=== PATIENT | male | born 1955 | race Caucasian/White ===

== ENCOUNTER 2019-01-26 13:00 | Inpatient (IN) | payer OTHER, BC ==
[~2019-01-26] VITALS: Ht 185.4 cm; Wt 147.4 kg
[~2019-01-26 13:00] MED LIST: ASPI81EC97 PO; COZ50 PO; FLAX10007 PO; GLUC500T3 PO; METF100028 PO; SIMV80TA1 PO; [UNRECOGNIZED DRUG - CODE] PO
[2019-01-26 13:08] VITALS: BP 144/72
--- NOTE | 2019-01-26 13:25 | NUR ---
DR REBOLLEDO AT BEDSIDE EVALUATING PT.
[2019-01-26] MEDS ORDERED: NACL 0.9% 500 ML IV SCH (13:33)
--- NOTE | 2019-01-26 13:50 | NUR ---
XRAY AT BEDSIDE.
--- NOTE | 2019-01-26 14:02 | NUR ---
BIBA W/ C/O GENERALIZED WEAKNESS X1 DAY. PT REPORTS LEAVING [facility] TODAY AND UPON RETURNING HOME WAS UNABLE TO WALK INTO HIS HOUSE DUE TO BLE WEAKNESS SO HIS CALLED 911. FSBS WAS CHECKED: 209, PT IS ALERT & ORIENTED, ANSWERING QUESTIONS APPROPRIATELY. +2 PITTING EDEMA TO BLE. DENIES N/V/D/PAIN, SKIN IS PINK/WARM/DRY PT DENIES ANY FEVER, CP, SOB, OR COUGH AT THIS TIME. HOB ELEVATED, BEDRAILS UP X1.
[2019-01-26 14:04] LABS: BASOPHILS # (AUTO) 0.1 K/uL (0.00-0.22); BASOPHILS % (AUTO) 0.6 % (0.0-2.0); EOSINOPHILS # (AUTO) 0.1 K/uL (0-0.4); EOSINOPHILS % (AUTO) 1.2 % (0.0-4.0); HEMATOCRIT 54.6 % (36-52); HEMOGLOBIN 18.4 g/dL (12.0-18.0); LYMPHOCYTES # (AUTO) 0.6 K/uL (2.0-11.5); LYMPHOCYTES % (AUTO) 6.9 % (20.5-51.1); MEAN CORPUSCULAR HEMOGLOBIN 30 pg (27-31); MEAN CORPUSCULAR HGB CONC 34 g/dL (33-37); MEAN CORPUSCULAR VOLUME 87.6 fL (80-94); MONOCYTES # (AUTO) 0.8 K/uL (0.8-1.0); MONOCYTES % (AUTO) 9.2 % (1.7-9.3); NEUTROPHILS # (AUTO) 6.7 K/uL (1.8-7.7); NEUTROPHILS % (AUTO) 82.1 % (42.2-75.2); PLATELET COUNT (AUTO) 352 K/uL (140-450); RED BLOOD CELL COUNT(AUTO) 6.24 MIL/uL (4.20-6.10); RED CELL DISTRIBUTION WIDTH 13.7 % (11.6-13.7); WHITE BLOOD COUNT (AUTO) 8.2 K/uL (4.8-10.8)
[2019-01-26 14:10] LABS: ANION GAP 13.4 (8-16); CARBON DIOXIDE 25.6 mmol/L (21-32); CREATININE 0.9 mg/dL (0.7-1.3)
--- NOTE | 2019-01-26 14:14 | NUR ---
mother in law ELIN [phone]
[2019-01-26 14:23] LABS: ALBUMIN 3.3 g/dL (3.4-5.0); TOTAL BILIRUBIN 1.2 mg/dL (0.0-1.0)
--- NOTE | 2019-01-26 14:23 | NUR ---
PT UNABLE TO PROVIDE URINE AT THIS TIME.
--- NOTE | 2019-01-26 14:40 | NUR ---
PT STATES HE IS STILL UNABLE TO PROVIDE A URINE SAMPLE
[2019-01-26] MEDS ORDERED: LINA5TAB PO (14:52)
[2019-01-26] MEDS ORDERED: INSU100S22 SUBQ (14:52)
[2019-01-26] MEDS ORDERED: ATOR10TA PO (14:52)
[2019-01-26] MEDS ORDERED: DAPA10TA PO (14:52)
[2019-01-26] MEDS ORDERED: CARV6.25 PO (14:52)
--- NOTE | 2019-01-26 15:05 | NUR ---
URINE COLLECTED AND SENT TO LAB
[2019-01-26 15:12] LABS: APPEARANCE,URINE CLEAR (CLEAR); BILIRUBIN,URINE NEGATIVE (NEGATIVE); BLOOD, URINE NEGATIVE (NEGATIVE); COLOR,URINE YELLOW (YELLOW); LEUKOCYTE ESTERASE ,URINE NEGATIVE (NEGATIVE); NITRITE, URINE NEGATIVE (NEGATIVE); PH,URINE 5.5 (5.0-9.0); UGLUCOSE 3+ (NEGATIVE)
--- NOTE | 2019-01-26 15:12 | NUR ---
PT ASLEEP IN BED, NO NEW NEEDS AT THIS TIME
[2019-01-26 15:22] LABS: RBC,URINE 0-5 /HPF (0-5)
--- NOTE | 2019-01-26 16:21 | NUR ---
SPOKE TO HAND PACKER/PACKAGER ARMOND. VERBAL AUTHORIZTION TO ADMIT PATIENT. CALL BACK TOMORROW FOR REFERENCE NUMBER FOR VERIFICATION.
[2019-01-26] MEDS ORDERED: ACETAMINOPHEN 325 MG TAB PO PRN (16:25)
[2019-01-26] MEDS ORDERED: ONDANSETRON 4 MG/2 ML VIAL IVP PRN (16:25)
--- NOTE | 2019-01-26 16:30 | NUR ---
PT RESTING IN BED, NO NEW NEEDS AT THIS TIME. PT MADE AWARE WE ARE PENDING ADMISSION INFORMATION AT THIS TIME.
[2019-01-26 16:50] LABS: BARBITURATE, URINE NEG. ng/ml (NEG <=200); BENZODIAZEPINE, URINE NEG. ng/mL (NEG <=200); CANNABINOID, URINE NEG. ng/mL (NEG <=50); COCAINE, URINE NEG. ng/mL (NEG <=300); OPIATE, URINE NEG. ng/mL (NEG <=2000); PHENCYCLIDINE SCREEN,URINE NEG. ng/mL (NEG <=25)
--- NOTE | 2019-01-26 17:25 | NUR ---
RECEIVED REPORT FROM ED NURSE. PT IS CALM AND ORIENTED AOX4 WITH NO COMPLAINTS AT THIS TIME. PT HAS SWELLING TO FEET NON PITTING, SKIN INTACT. BREATHING ON 2L UNLABORED LUNGS SYMMETRICAL. MRSA SWAB TAKEN. ALLERGY LABEL AND FALL RISK BAND APPLIED. SAFETY MEASURES IN PLACE AND CALL LIGHT AND PHONE WITHIN REACH. PT HAS LEFT ANTECUBITAL IV THAT IS PATENT AND ASYMPTOMATIC.
--- NOTE | 2019-01-26 17:29 | NUR ---
Patient will be admitted to care of DR. CRUZ. Admited to MED SURGE. Will go to room 108A. Belongings list completed. Report to QUINTIN ARAIZA.
[2019-01-26 17:31] LABS: FREE T4 (FREE THYROXINE) 1.32 ng/dL (0.76-1.46); MAGNESIUM 1.7 mg/dL (1.8-2.4); PHOSPHORUS 3.2 mg/dL (2.5-4.9); THYROID STIMULATING HORMONE 1.54 uIU/mL (0.34-3.74)
[2019-01-26] MEDS: NACL 0.9% 1,000 ML IV SCH (18:01)
[2019-01-26] MEDS ORDERED: MAG SULF 2000 MG/WATER PREMIX 50 ML IV SCH (18:30)
--- NOTE | 2019-01-26 19:19 | NUR ---
GAVE BEDSIDE REPORT TO NIGHT NURSE. PT IN STABLE CONDITION. DR GIORDANO AT BEDSIDE WITH PT DURING REPORT
--- NOTE | 2019-01-26 19:20 | NUR ---
RECEIVED BEDSIDE REPORT FROM DAY SHIFT RN QUINTIN. PT A/O X4. DISCUSSED PLAN OF CARE. VERBALIZED UNDERSTANDING. ABLE TO MAKE NEEDS KNOWN. NO SIGNS OF RESP DISTRESS. NC @2L. SKIN INTACT. L AC 20G INFUSING NS @10. PATENT AND INTACT. CONTINENT. PT USES URINAL. UNABLE TO AMBULATE. STANDARD PRECAUTIONS. FALL PRECAUTIONS IN PLACE. BED IN LOW POSITION. CALL LIGHT WITHIN REACH. WILL CONTINUE TO MONITOR.
--- NOTE | 2019-01-26 20:00 | NUR ---
PT MOVED TO 127 B. MEETS CRITERIA
[2019-01-26] MEDS ORDERED: C,E,1CAP2 PO (20:29)
[2019-01-26] MEDS ORDERED: HYDR-3320 PO (20:29)
[2019-01-26] MEDS ORDERED: METF1000 PO (20:29)
[2019-01-26] MEDS: DOCUSATE SODIUM 100 MG GELCAP PO SCH (20:42)
[2019-01-26] MEDS: ATORVASTATIN 20 MG TAB PO SCH (20:58)
[2019-01-26] MEDS ORDERED: metFORMIN 500 MG TAB PO SCH (21:00)
[2019-01-26] MEDS ORDERED: NON-FORMULARY ITEM (Insulin Glargine,Hum.rec.anlog (Lantus Solostar) 30 UNIT) SUBQ SCH (21:00)
[2019-01-26] MEDS ORDERED: CARVEDILOL 6.25 MG TAB PO SCH (21:00)
[2019-01-26] MEDS: INSULIN LANTUS 100 UNITS/ML 10 ML VIAL SUBQ SCH (21:07)
--- NOTE | 2019-01-26 21:10 | NUR ---
ADMINISTERED PT SCHEDULED MEDS ORDERED. EDUCATED ON SIDE EFFECTS. VERBALIZED UNDERSTANDING. TOLERATED WELL. WILL CONTINUE TO MONITOR.
--- NOTE | 2019-01-26 22:38 | NUR ---
ASSISTED PT TO REPOSITION. HELP OF ADDITIONAL 2CNAS. PERFORMED LOPEZ CARE AND CHANGED WET LINENS. TOLERATED WELL. WILL CONTINUE TO MONITOR.
--- NOTE | 2019-01-26 23:00 | NUR ---
PT REQUESTED TO REMOVE NASAL CANULA DURING THE NIGHT. NOT EXPERIENCING SHORTNESS OF BREATH. NO DISTRESS. DENIES PAIN. WILL CONTINUE TO MONITOR.
--- NOTE | 2019-01-27 00:03 | NUR ---
PT SLEEPING IN BED. EASILY AROUSABLE. NO SIGNS OF DISTRESS. WILL CONTINUE TO MONITOR.
--- NOTE | 2019-01-27 03:02 | NUR ---
PT IS SLEEPING IN BED. EASILY AROUSABLE. NO SIGNS OF RESP DISTRESS NOTED. NO SOB. DENIES PAIN. NO COMPLAINTS AT THIS TIME. PT ON OBSERVATION, STILL INFUSING NS @10 ORDERED. WILL CONTINUE TO MONITOR.
--- NOTE | 2019-01-27 04:48 | NUR ---
PT SLEEPING IN BED. EASILY AROUSABLE. NO SIGNS OF DISTRESS. NO COMPLAINTS. NO PAIN REPORTED. BED IN LOW POSITION. BED ALARM ACTIVE. CALL LIGHT WITHIN REACH. WILL CONTINUE TO MONITOR.
--- NOTE | 2019-01-27 05:07 | NUR ---
PT REQUESTED ASSISTANCE TO USE RESTROOM. NEEDS ASSISTANCE OF 2 PERSONAL.ABLE TO AMBULATE. UNSTEADY WITHOUT ASSISTANCE. TOLERATED WELL. NO SIGNS OF DISTRESS. WILL CONTINUE TO MONITOR.
--- NOTE | 2019-01-27 06:49 | NUR ---
WILL ENDORSE PT TO DAY SHIFT RN. PT IN STABLE CONDITION.AWAKE IN BED. NO SIGNS OF DISTRESS. WILL CONTINUE TO MONITOR.
[2019-01-27 06:53] LABS: BASOPHILS # (AUTO) 0.1 K/uL (0.00-0.22); BASOPHILS % (AUTO) 0.8 % (0.0-2.0); EOSINOPHILS # (AUTO) 0.1 K/uL (0-0.4); EOSINOPHILS % (AUTO) 1.6 % (0.0-4.0); HEMATOCRIT 54.2 % (36-52); HEMOGLOBIN 18.1 g/dL (12.0-18.0); LYMPHOCYTES % (AUTO) 14.4 % (20.5-51.1); MEAN CORPUSCULAR HEMOGLOBIN 30 pg (27-31); MEAN CORPUSCULAR HGB CONC 33 g/dL (33-37); MEAN CORPUSCULAR VOLUME 88.6 fL (80-94); MONOCYTES # (AUTO) 0.9 K/uL (0.8-1.0); MONOCYTES % (AUTO) 12.5 % (1.7-9.3); NEUTROPHILS # (AUTO) 5.1 K/uL (1.8-7.7); NEUTROPHILS % (AUTO) 70.7 % (42.2-75.2); PLATELET COUNT (AUTO) 321 K/uL (140-450); RED BLOOD CELL COUNT(AUTO) 6.12 MIL/uL (4.20-6.10); WHITE BLOOD COUNT (AUTO) 7.2 K/uL (4.8-10.8)
[2019-01-27 07:02] LABS: CARBON DIOXIDE 22.4 mmol/L (21-32); CREATININE 0.8 mg/dL (0.7-1.3); POTASSIUM 3.4 mmol/L (3.5-5.1)
[2019-01-27 07:11] LABS: CHOL/HDL RATIO 4.5 (1-4.5); MAGNESIUM 1.9 mg/dL (1.8-2.4); PHOSPHORUS 4.5 mg/dL (2.5-4.9)
--- NOTE | 2019-01-27 07:32 | NUR ---
RECEIVED HAND OFF REPORT FROM LINE ASSEMBLER AIRCRAFT NURSE PT IS AWAKE IN BED PT IS STABLE AND IN NO APPARENT DISTRESS. ALL SAFETY MEASURES ARE IN PLACE. WILL CONTINUE TO MONITOR.
--- NOTE | 2019-01-27 07:32 | NUR ---
PT PICKED UP TO GO TO CT SCAN. PT IS HEP LOCKED, ASSISTED PT TO WHEEL CHAIR PT IS STABLE AND IN NO APPARENT DISTRESS. ALL SAFETY MEASURES ARE IN PLACE.
--- NOTE | 2019-01-27 07:46 | NUR ---
PT BACK FROM CT SCAN. PT IS AWAKE IN BED PT IS STABLE AND IN NO APPARENT DISTRESS. ALL SAFETY MEASURES ARE IN PLACE WILL CONTINUE TO MONITOR.
[2019-01-27 08:00] VITALS: BP 154/79
--- NOTE | 2019-01-27 08:05 | NUR ---
FAXED REQUEST FOR MEDICAL RECORDS TO [facility]. CAME BACK ERROR AND DID NO SEND, I AM GOING TO CALL TO CHECK THE FAX NUMBER.
[2019-01-27] MEDS: metFORMIN 500 MG TAB PO SCH ×2 (08:32→17:33)
[2019-01-27] MEDS: DOCUSATE SODIUM 100 MG GELCAP PO SCH ×2 (08:32→21:32)
[2019-01-27] MEDS: GABAPENTIN 100 MG CAP PO SCH ×3 (08:33→17:32)
[2019-01-27] MEDS: CARVEDILOL 6.25 MG TAB PO SCH ×2 (08:33→17:33)
[2019-01-27] MEDS: INSULIN LANTUS 100 UNITS/ML 10 ML VIAL SUBQ SCH ×2 (08:51→21:39)
[2019-01-27] MEDS ORDERED: NON-FORMULARY ITEM (Linagliptin (Tradjenta) 1 TAB) PO SCH (09:00)
[2019-01-27] MEDS ORDERED: ASPIRIN 81 MG TAB.CHEW PO SCH (09:00)
[2019-01-27] MEDS ORDERED: LOSARTAN 50 MG TAB PO SCH (09:00)
[2019-01-27] MEDS ORDERED: HYDROCHLOROTHIAZIDE 25 MG TAB PO SCH (09:00)
[2019-01-27] MEDS ORDERED: MAGNESIUM OXIDE 400 MG TAB PO SCH (09:00)
[2019-01-27] MEDS ORDERED: NON-FORMULARY ITEM (Losartan/Hydrochlorothiazide (Losartan-Hctz 100-25 mg Tab) 1 TAB) PO SCH (09:00)
[2019-01-27] MEDS ORDERED: NON-FORMULARY ITEM (Dapagliflozin Propanediol (Farxiga) 10 MG) PO SCH (09:00)
[2019-01-27] MEDS ORDERED: [UNRECOGNIZED DRUG - OTHER] PO SCH (09:00)
--- NOTE | 2019-01-27 11:03 | NUR ---
CALLED [facility] AND GOT THE CORRECT FAX NUMBER FOR THE MEDICAL RECORDS REQUEST. RECEIVED CONFIRMATION OF FAX GOING THROUGH AND PLACED IN PTS CHART. WILL FOLLOW UP IN ABOUT AN HOUR TO SEE IF I GET THE RECORDS.
[2019-01-27] MEDS ORDERED: POTASSIUM CHLORIDE 10 MEQ TABER PO SCH (11:30)
--- NOTE | 2019-01-27 11:45 | NUR ---
CALLED [facility] AND SPOKE WITH THE MEDICAL RECORDS OFFICE ASKED THEM TO FAX OVER THE MEDICAL HISTORY [place] AND THAT THE DOCTORS ARE WAITING TO REVIEW THE CHART.
--- NOTE | 2019-01-27 12:00 | NUR ---
PHARMACY CALLED AND ASKED IF PT FAMILY CAN BRING SOME HOME MEDICATIONS THAT WE DONT HAVE AVAILABLE HERE. TALKED TO PATIENT PT STATED HIS WILL BRING THEM LATER.
[2019-01-27] MEDS: BLOOD GLUCOSE MONITORING 1 DEV DEV FS SCH ×4 (12:07→21:31)
[2019-01-27] MEDS: INSULIN LISPRO SLIDING SCALE 100 UNITS/ML VIAL SUBQ PRN ×2 (12:12→21:40)
--- NOTE | 2019-01-27 12:18 | NUR ---
FINGERSTICK GLUCOSE 188 GAVE 2 UNITS HUMALOG PER SLIDING SCALE. PT IS AWAKE IN BED PT IS STABLE AND SHOWS NO SIGNS OF DISTRESS, IVF INFUSING AT 10ML/HR IV SITE IS PATENT AND SHOWS NO SIGNS OF INFLAMMATION OR INFILTRATION ALL SAFETY MEASURES ARE IN PLACE. WILL CONTINUE TO MONITOR.
--- NOTE | 2019-01-27 13:00 | NUR ---
RECEIVED COMPLETE CHART FROM [facility]. MADE A COPY, GAVE COPY TO THE RESIDENTS AND PLACED ANOTHER COPY IN THE PTS CHART
--- NOTE | 2019-01-27 15:11 | NUR ---
FREQUENT ROUNDING ON PT PT IS ASLEEP NOTABLE LUNG RISE AND FALL. PT APPEARS STABLE AND IN NO APPARENT DISTRESS. ALL SAFETY MEASURES ARE IN PLACE. WILL CONTINUE TO MONITOR.
--- NOTE | 2019-01-27 15:45 | NUR ---
CHANDU SMITH FROM INSURANCE CALLED [phone], SHE SAID THAT PATIENT NEEDS TO BE TRANSFERRED TO [facility] IF STABLE, WILL CALL .
--- NOTE | 2019-01-27 16:15 | NUR ---
SPOKE TO DR ORTIZ, NOTIFIED THAT PATIENT NEEDS TO BE TRANSFERRED TO [facility] IF STABLE, SHE SAID SHE WILL GET HOLD OF DR CRUZ.
[2019-01-27 16:22] VITALS: BP 121/73
[2019-01-27] MEDS: NACL 0.9% 1,000 ML IV SCH (16:23)
--- NOTE | 2019-01-27 16:45 | NUR ---
FINGERSTICK GLUCOSE CHECK 150. NO INSULIN COVERAGE NEEDED
--- NOTE | 2019-01-27 17:00 | NUR ---
PER NURSING LINSEED OIL REFINER CATHY HE CALLED [facility] FOR BED BUT NO BED AVAILABLE YET AT THIS TIME. CALLED AND NOTIFIED CHANDU SMITH [phone]. WILL FAX CLINICALS TO [phone].
--- NOTE | 2019-01-27 18:35 | NUR ---
FREQUENT ROUNDING ON PATIENT PT IS STABLE AND IN NO APPARENT DISTRESS. WILL CONTINUE TO MONITOR
--- NOTE | 2019-01-27 19:08 | NUR ---
Mick lanier [facility] nurse policy change clerks supervisor called and stated that Authorization needed from [facility] before accepting the patient. Called LUIS Florentino at [facility] and left a her a message with the answering service requesting Auth. for [facility]. Mishel called back from [facility] and stated no Authorization is needed and will call Mick at [facility] and will call me back. Mishel called back and said that Mick aware that no auth. is needed, and she will review the patient chart for bed assignment and will call [facility] nursing policy change clerks supervisor.
--- NOTE | 2019-01-27 19:20 | NUR ---
RECEIVED REPORT FORM MAICO ARAIZA DAYSHIFT NURSE . PT IN STABLE CONDITION.
--- NOTE | 2019-01-27 19:32 | NUR ---
ENDORSED PT TO PUBLIC SERVICE REPRESENTATIVE NURSE. PT IS STABLE AND IN NO APPARENT DISTRESS.
--- NOTE | 2019-01-27 20:00 | NUR ---
PT IN BED ALL FALLS PRECAUTIONS IN PLACE. PT HAD AN INCONTINENT EPISODE X1. HE WAS TURNED, CHANGED AND REPOSITIONED. V/S FOLLOWS T 98.2 P 87 R 18 B/P 115/63 02 96% WITH 2 LITERS VIA N/C.
--- NOTE | 2019-01-27 21:00 | NUR ---
PT GIVEN SCHEDULED MEDS AT THIS TIME OF COLACE, LIPITOR, HEPARIN. MEDICATION EDUCATION PROVIDED. PT FINGERSTICK IS 189, PT GIVEN 2 UNITS OF HUMALOG COVERAGE WELL ORDERED LANTUS. PT DECLINES TO HAVE SUPPLEMENTAL 02 AT THIS TIME, PT IS BREATHING EASY AND UNLABORED.
[2019-01-27] MEDS: ATORVASTATIN 20 MG TAB PO SCH (21:34)
--- NOTE | 2019-01-27 23:49 | NUR ---
Nursing cold rolling supervisor at [facility] just called to give update and she is still waiting for Dr. Sosa to review the record for admission. No bed given yet. butter production supervisor will check with Dr. Sosa and will call back.
[2019-01-28] VITALS: BP 140/83
--- NOTE | 2019-01-28 | NUR ---
PT IN BED SITTING UP IN BED WATCHING TV WITH NO S/S OF PAIN OR DISTRESS. PT IV SITE SECURED WITH PAPER TAPE. PT DENIES PAIN AND CONTINUES TO DECLINE SUPPLEMENTAL 02. V/S FOLLOWS T 98.4 P 72 R 18 B/P 141/82 02 95% ON ROOM AIR. ALL FALLS PRECAUTIONS IN PLACE.
--- NOTE | 2019-01-28 01:30 | NUR ---
PT C/O THAT HIS IV SITE WAS BURNING AND LOOKED OUT OF PLACE. IV SITE WAS TAKEN OUT, ATTEMPTED X1 UNSUCCESSFUL, ASKED ULTRASOUND SUPERVISOR TO INSERT IV . NEW IV SITE ON LEFT HAND 22G INSERTED AND FLUSHED PATENT.
--- NOTE | 2019-01-28 02:15 | NUR ---
RECEIVED CALL FROM [facility] TALKED TO ALMAZ ESTEVEZ TO BE TRANSFERRED TO ROOM 491B, TO CALL [phone] FOR REPORT.
--- NOTE | 2019-01-28 02:35 | NUR ---
DISCHARGE PAPERS AND INSTRUCTIONS GIVEN TO PT. PT SIGNED DISCHARGE PAPERS PT ALSO DRESSED AND READY TO TRANSFER WITH BELONGINGS AT BEDSIDE. AWAITING [facility] TRANSPORT.
[2019-01-28 02:46] VITALS: BP 140/83
--- NOTE | 2019-01-28 03:00 | NUR ---
REPORT GIVEN TO GEOVANY ARAIZA FROM [facility]. PT GOING TO ROOM 491B.
--- NOTE | 2019-01-28 03:24 | NUR ---
[facility] HERE TO TRANSFER PT, QUICK REPORT GIVEN TO TRANSPORTER. PT LEFT VIA GURNEY ESCORTED BY 2 EMT, BELONGINGS IN HAND.
== END 2019-01-28 03:20 | disposition short-term general hospital (02) | DRG 74 ==
LOC: MED 13:00 → MTU 17:05 → MMU 22:43 → OBSVTOIN 01-27 08:57
PROVIDERS: ADMIT General Practice; ATTEND General Practice
DX: G90.8 Other disorders of autonomic nervous system (principal); Z68.41 Body mass index [BMI] 40.0-44.9, adult; D68.59 Other primary thrombophilia; D75.1 Secondary polycythemia; E87.6 Hypokalemia; E11.9 Type 2 diabetes mellitus without complications; M51.36 Other intervertebral disc degeneration, lumbar region; M48.061 Spinal stenosis, lumbar region without neurogenic claudication; E78.5 Hyperlipidemia, unspecified; I11.0 Hypertensive heart disease with heart failure; I50.9 Heart failure, unspecified; E66.9 Obesity, unspecified; Z71.3 Dietary counseling and surveillance; Z91.09 Other allergy status, other than to drugs and biological substances; Z79.899 Other long term (current) drug therapy; Z79.4 Long term (current) use of insulin; Z90.79 Acquired absence of other genital organ(s); Z98.49 Cataract extraction status, unspecified eye
CPT/HCPCS: 96360; 99285; G0378; 36415; 71045; 72131; 80048; 80053; 80305; 81001; 82150; 82550; 82553; 82948; 83036; 83605; 83690; 83735; 83874; 83880; 84100; 84439; 84443; 84484; 85025; 85610; 85730; 87040; 87081; 87086; 93005; 93925; 97110; J1644; J1815; J3475; J7030; Q0092